=== PATIENT | male | born 1945 | race Caucasian/White ===

== ENCOUNTER 2020-02-05 16:04 | Emergency (ER) | payer OTHER ==
--- NOTE | 2020-02-05 18:03 | RAD REPORT ---
EXAM DESCRIPTION: US - Extremity Nonvascular Limited - 02/05/2020 5:40 pm CLINICAL HISTORY: Right perineum swelling COMPARISON: None FINDINGS: Palpable area is present within the right perineum. Ultrasound demonstrates a 2.3 centimeter heterogeneous mass containing hypo echoic and isoechoic area s. Increased blood flow is noted. IMPRESSION: 2.3 centimeter palpable mass within the right perineum may represent an early abscess/in flammatory mass. This should be correlated clinically
[2020-02-05] MEDS ORDERED: BUPIVACAINE 0.5% PF 10 ML VIAL ONE (18:42)
[2020-02-05] MEDS ORDERED: LIDOCAINE 1% W/EPI 1:100,000 MDV 20 ML VIAL ONE (18:42)
--- NOTE | 2020-02-05 18:51 | EDPHYS ---
Physician Documentation [facility] Name: Henry Rodriguez Age: 74 yrs Sex: Male : 1945 Arrival Date: 02/05/2020 Time: 16:07 Bed 14 Private MD: ED Physician Triston Tabor HPI: 02/04 16:43 This 74 yrs old Male presents to ER via Ambulatory with complaints of Pain cp and Swelling to Perineum. 16:43 The patient presents with swelling, that is mild, of the perineum, tenderness, that is cp mild, of the perineum. 16:44 Onset: The symptoms/episode began/occurred 4 day(s) ago. Associated signs and symptoms: cp Pertinent negatives: abdominal pain, fever. Historical: - Allergies: 16:27 No Known Allergies; ks7 - Home Meds: 16:27 pravastatin 20 mg oral tab 1 tab once daily [Active]; aspirin 81 mg Oral TbEC 1 tab ks7 once daily [Active]; - PMHx: 16:27 High Cholesterol; ks7 - PSHx: 16:27 None; ks7 - Immunization history:: Adult Immunizations up to date. - Social history:: Smoking status: Patient denies any tobacco usage or history of. ROS: 16:45 Constitutional: Negative for fever. cp 16:45 Abdomen/GI: Negative for abdominal pain. 16:45 : Positive for of the perineum, pain, tenderness and swelling. 16:45 All other systems are negative. Exam: 16:50 Constitutional: The patient appears in no acute distress, alert, awake, non-toxic, well cp developed, well nourished. 16:50 Head/Face: Normocephalic, atraumatic. cp 16:50 Chest/axilla: Inspection: normal. 16:50 Cardiovascular: Rate: normal. 16:50 Respiratory: the patient does not display signs of respiratory distress, Respirations: normal. 16:50 Abdomen/GI: Inspection: abdomen appears normal, Palpation: abdomen is soft and non-tender, in all quadrants. 16:50 : Male external genitalia: swelling, of the right perineum is noted, that is mild, tenderness, of the right perineum is noted, that is mild, no signs of obvious abscess, mild erythema noted. Vital Signs: 16:20 BP 109 / 81; Pulse 81; Resp 18; Temp 98.5(O); Pulse Ox 100% on R/A; Weight 121.11 kg ks7 (R); Height 6 ft. 7 in. (200.66 cm); Pain 0/10; 19:12 BP 99 / 76; Pulse 81; Resp 15 S; Pulse Ox 100% on R/A; ca1 16:20 Body Mass Index 30.08 (121.11 kg, 200.66 cm) ks7 MDM: 16:36 Patient medically screened. cp 17:00 Differential diagnosis: abscess, cellulitis. cp 18:50 Data reviewed: vital signs, nurses notes, radiologic studies, ultrasound. cp 18:50 Counseling: I had a detailed discussion with the patient and/or guardian regarding: the cp historical points, exam findings, and any diagnostic results supporting the discharge/admit diagnosis, radiology results, the need for outpatient follow up, a general surgeon, to return to the emergency department if symptoms worsen or persist or if there are any questions or concerns that arise at home. ED course: Attempt to aspirate area with 18 gauge needle unsuccessful. Will treat with oral antibiotics and discharge to home for continued monitoring. 02/04 16:41 Order name: Extrmtbeckie Nonvasular Limited: perineum area for abscess; Complete Time: cp 18:14 02/04 18:16 Order name: I\T\D Setup; Complete Time: 18:34 cp 02/04 18:49 Order name: Wound dressing; Complete Time: 19:10 cp Administered Medications: 18:33 Drug: Marcaine (0.5 %) 10 ml {Note: given via RADHA Lala for I\T\D .} Volume: 10 ml; jr10 Route: Infiltration; 18:34 Drug: Lidocaine-Epinephrine -1%: (1:100,000) 10 ml {Note: given via RADHA Lala for jr10 I\T\D.} Volume: 20 ml; Route: Infiltration; 19:06 Drug: Doxycycline 100 mg Route: PO; ca1 19:17 Follow up: Response: Medication administered at discharge. ca1 19:09 Drug: Bactrim (160 mg-800 mg (DS) 1 tablet Route: PO; ca1 19:17 Follow up: Response: Medication administered at discharge. ca1 Disposition: 19:00 Chart complete. cp 02/05 07:27 Co-signature as Attending Physician, Triston Tabor MD I agree with the assessment and kdr plan of care. Disposition: 02/05/20 18:51 Discharged to Home. Impression: Cellulitis and acute lymphangitis of other sites - perineum. - Condition is Stable. - Discharge Instructions: Cellulitis, Adult. - Prescriptions for Doxycycline Hyclate 100 mg Oral Tablet - take 1 tablet by ORAL route every 12 hours; 20 tablet. Bactrim DS 800- 160 mg Oral Tablet - take 1 tablet by ORAL route every 12 hours for 10 days; 20 tablet. - Medication Reconciliation Form, Thank You Letter, Antibiotic Education, Prescription Opioid Use form. - Follow up: Cole Lopez MD; When: 1 - 2 days; Reason: Recheck today's complaints. - Problem is new. - Symptoms have improved. Signatures: Dispatcher [employer] EDMS Triston Tabor MD MD kdr Dickson Jade PA PA cp Marietta Lloyd, RN RN ca1 Flaquita Bhandari RN RN ks7 Mago Kessler RN RN jr10 Corrections: (The following items were deleted from the chart) 02/04 19:18 18:51 02/05/2020 18:51 Discharged to Home. Impression: Cellulitis and acute ca1 lymphangitis of other sites - perineum. Condition is Stable. Forms are Medication Reconciliation Form, Thank You Letter, Antibiotic Education, Prescription Opioid Use. Follow up: Cole Lopez; When: 1 - 2 days; Reason: Recheck today's complaints. Problem is new. Symptoms have improved. cp
--- NOTE | 2020-02-05 18:51 | ER ---
Nurse's Notes [facility] Name: Henry Rodriguez Age: 74 yrs Sex: Male : 1945 Arrival Date: 02/05/2020 Time: 16:07 Bed 14 Private MD: Diagnosis: Cellulitis and acute lymphangitis of other sites-perineum Presentation: 02/04 16:20 Chief complaint: Patient states: pt c/o cyst/abcess on his perineum. Sx started 4 days ks7 ago. Pt describes it as a knot in between his scrotum and anus. Yesterday pt attempted to drain the abcess himself, used a "steriilzed needle" to poke the area and some white/creamy looking and then clear liquid came out. In ED pt aaox4, ambulatory, no s/s of distress, denies fever. Coronavirus screen: Client denies travel out of the [place] in the last 14 days. At this time, the client does not indicate any symptoms associated with coronavirus-19. The client denies any previous COVID testing. Ebola Screen: Patient negative for fever greater than or equal to 101.5 degrees Fahrenheit, and additional compatible Ebola Virus Disease symptoms Patient denies exposure to infectious person. Patient denies travel to an Ebola-affected area in the 21 days before illness onset. Initial Sepsis Screen: Does the patient meet any 2 criteria? No. Patient's initial sepsis screen is negative. Does the patient have a suspected source of infection? No. Patient's initial sepsis screen is negative. Risk Assessment: Do you want to hurt yourself or someone else? Patient reports no desire to harm self or others. Onset of symptoms was February 02, 2020. 16:20 Method Of Arrival: Ambulatory ks7 16:20 Acuity: ESPERANZA 3 ks7 Triage Assessment: 16:27 General: Appears in no apparent distress. Behavior is calm, cooperative. Pain: Denies ks7 pain. 16:27 Pain: Complains of pain in perineum Pain currently is 4 out of 10 on a pain scale. ks7 Quality of pain is described as dull, tender, Pain began 2-3 days ago. Aggravated by palpation, movement. Historical: - Allergies: 16:27 No Known Allergies; ks7 - Home Meds: 16:27 pravastatin 20 mg oral tab 1 tab once daily [Active]; aspirin 81 mg Oral TbEC 1 tab ks7 once daily [Active]; - PMHx: 16:27 High Cholesterol; ks7 - PSHx: 16:27 None; ks7 - Immunization history:: Adult Immunizations up to date. - Social history:: Smoking status: Patient denies any tobacco usage or history of. Screenin:05 Abuse screen: Denies threats or abuse. Denies injuries from another. Nutritional ca1 screening: No deficits noted. 19:05 Tuberculosis screening: No symptoms or risk factors identified. Fall Risk None ca1 identified. Assessment: 17:25 Reassessment: US at bedside. jr10 18:33 Reassessment: Provider at bedside for I\\T\\D. jr10 19:11 Reassessment: Patient appears in no apparent distress at this time. Patient is alert, ca1 oriented x 3, equal unlabored respirations, skin warm/dry/pink. Vital Signs: 16:20 BP 109 / 81; Pulse 81; Resp 18; Temp 98.5(O); Pulse Ox 100% on R/A; Weight 121.11 kg ks7 (R); Height 6 ft. 7 in. (200.66 cm); Pain 0/10; 19:12 BP 99 / 76; Pulse 81; Resp 15 S; Pulse Ox 100% on R/A; ca1 16:20 Body Mass Index 30.08 (121.11 kg, 200.66 cm) ks7 ED Course: 16:07 Patient arrived in ED. ag5 16:25 Triage completed. ks7 16:27 Arm band placed on left wrist. ks7 16:31 Dickson Jade PA is PHCP. cp 16:31 Triston Tabor MD is Attending Physician. cp 16:39 Mago Kessler, SHAKIRA is Primary Nurse. jr10 17:40 US Extrmty Nonvasular Limited: perineum area for abscess In Process Unspecified. EDMS 18:50 Cole Lopez MD is Referral Physician. cp 19:00 Patient has correct armband on for positive identification. Placed in gown. Bed in low ca1 position. Call light in reach. Side rails up X 1. 19:00 Pulse ox on. NIBP on. ca1 19:11 No provider procedures requiring assistance completed. Patient did not have IV access ca1 during this emergency room visit. Administered Medications: 18:33 Drug: Marcaine (0.5 %) 10 ml {Note: given via RADHA Lala for I\\T\\D .} Volume: 10 ml; jr10 Route: Infiltration; 18:34 Drug: Lidocaine-Epinephrine -1%: (1:100,000) 10 ml {Note: given via RADHA Lala for jr10 I\\T\\D.} Volume: 20 ml; Route: Infiltration; 19:06 Drug: Doxycycline 100 mg Route: PO; ca1 19:17 Follow up: Response: Medication administered at discharge. ca1 19:09 Drug: Bactrim (160 mg-800 mg (DS) 1 tablet Route: PO; ca1 19:17 Follow up: Response: Medication administered at discharge. ca1 Outcome: 18:51 Discharge ordered by MD. [place] 19:17 Discharged to home ambulatory. ca1 19:17 Condition: stable 19:17 Discharge instructions given to patient, Instructed on discharge instructions, follow up and referral plans. medication usage, wound care, Demonstrated understanding of instructions, follow-up care, medications, wound care, Prescriptions given X 2. 19:18 Patient left the ED. ca1 Signatures: Dispatcher [employer] EDMS Dickson Jade PA PA cp Acob, Cheryl RN RN ca1 Jeevan Lilly ag5 Flaquita Bhandari, RN RN ks7 Mago Kessler RN RN jr10
[2020-02-05] MEDS ORDERED: DOXYCYCLINE 100 MG CAP PO ONE (19:17)
[2020-02-05] MEDS ORDERED: SMZ./TMP. 800/160 MG TABLET ONE (19:17)
[2020-02-05 19:22] VITALS: TEMP 98.5; O2SAT 100
[2020-02-05 19:23] VITALS: BP 99/76
== END 2020-02-05 19:18 | disposition home or self-care (01) ==
LOC: ER 16:04
DX: L03.315 Cellulitis of perineum (principal); L00-L99 Diseases of the skin and subcutaneous tissue; E78.00 Pure hypercholesterolemia, unspecified; Z79.82 Long term (current) use of aspirin
CPT/HCPCS: 76882; 99284

== ENCOUNTER 2021-07-29 12:18 | Observation (INO) | payer OTHER ==
[2021-07-29 12:56] LABS: Absolute Lymphocytes (CBC) 1.6 K/uL (0.7-4.9); Hematocrit 50.5 % (39.6-49.0); Lymphocytes % 26.6 % (15.3-44.8); MPV 9.6 fL (7.6-11.3); RBC Red Blood Cell Count 5.33 M/uL (4.33-5.43)
[2021-07-29 12:57] LABS: Protime INR 0.93
--- NOTE | 2021-07-29 12:57 | RAD REPORT ---
EXAM DESCRIPTION: RAD - Chest Single View - 07/29/2021 12:51 pm CLINICAL HISTORY: CHEST PAIN Chest pain. COMPARISON: No comparisons FINDINGS: Portable technique limits examination quality. The lungs are emphysematous but grossly clear. The heart is normal in size. No displaced fractures. IMPRESSION: No acute intrathoracic process suspected.
[2021-07-29 16:28] LABS: ALT/SGPT 30 U/L (12-78); AST/SGOT 22 U/L (15-37); Albumin 3.6 g/dL (3.4-5.0); Alkaline Phosphatase 76 U/L (45-117); BUN Blood Urea Nitrogen 16 mg/dL (7-18); Bicarbonate 24 mmol/L (21-32); Bilirubin Direct 0.1 mg/dL (0-0.2); Bilirubin Total 0.5 mg/dL (0.2-1.0); Glucose Level 121 mg/dL (74-106); NT PRO-BNP 76 pg/mL (<125); Potassium 4.1 mmol/L (3.5-5.1); Protein, Total 7.9 g/dL (6.4-8.2); Sodium Level 139 mmol/L (136-145)
--- NOTE | 2021-07-29 18:58 | EDPHYS ---
Physician Documentation [facility] Name: Henry Rodriguez Age: 75 yrs Sex: Male : 1945 Arrival Date: 07/29/2021 Time: 12:20 Bed 19 Private MD: ED Physician Triston Tabor HPI: 07/29 18:57 This 75 yrs old Male presents to ER via Ambulatory with complaints of Chest Tightness, kdr Palpitations. 18:57 The patient or guardian reports chest pain that is located primarily in the anterior kdr chest wall, chest diffusely. Onset: suddenly, just prior to arrival. The pain does not radiate. Associated signs and symptoms: Pertinent positives: Weakness. Duration: The patient or guardian reports a single episode. Severity of pain: At its worst the pain was mild in the emergency department the pain has resolved. The patient has not experienced similar symptoms in the past. The patient has not recently seen a physician. The patient has a very strong family history of spontaneous cardiac events including . He is the oldest of 5 boys. The younger 2 boys have already due to spontaneous acute cardiac events. The middle brother has a extremely diminished EF secondary to prior heart attacks and the brother just under him has also had several cardiac events similar to what the patient has currently experienced. Historical: - Allergies: 12:39 No Known Allergies; [facility] - Home Meds: 12:28 aspirin 81 mg Oral TbEC 1 tab once daily [Active]; pravastatin 40 mg oral tab [Active]; [facility] - PMHx: 12:28 High Cholesterol; [facility] - Immunization history:: Adult Immunizations up to date. - Social history:: Smoking status: Patient denies any tobacco usage or history of. ROS: 19:04 Constitutional: Negative for fever, chills, and weight loss, Eyes: Negative for injury, kdr pain, redness, and discharge, ENT: Negative for injury, pain, and discharge, Neck: Negative for injury, pain, and swelling, Respiratory: Negative for shortness of breath, cough, wheezing, and pleuritic chest pain, Abdomen/GI: Negative for abdominal pain, nausea, vomiting, diarrhea, and constipation, Back: Negative for injury and pain, : Negative for injury, bleeding, discharge, and swelling, MS/Extremity: Negative for injury and deformity, Skin: Negative for injury, rash, and discoloration, Neuro: Negative for headache, weakness, numbness, tingling, and seizure activity. Psych: Negative for depression, anxiety, suicide ideation, homicidal ideation, and hallucinations, Allergy/Immunology: Negative for hives, rash, and allergies, Endocrine: Negative for neck swelling, polydipsia, polyuria, polyphagia, and marked weight changes, Hematologic/Lymphatic: Negative for swollen nodes, abnormal bleeding, and unusual bruising. 19:04 Cardiovascular: Positive for palpitations, Negative for edema. 19:04 Respiratory: Positive for shortness of breath. Exam: 17:43 ECG was reviewed by the Attending Physician. kdr 19:04 Constitutional: This is a well developed, well nourished patient who is awake, alert, kdr and in no acute distress. Head/Face: Normocephalic, atraumatic. Eyes: Pupils equal round and reactive to light, extra-ocular motions intact. Lids and lashes normal. Conjunctiva and sclera are non-icteric and not injected. Cornea within normal limits. Periorbital areas with no swelling, redness, or edema. Neck: Trachea midline, no thyromegaly or masses palpated, and no cervical lymphadenopathy. Supple, full range of motion without nuchal rigidity, or vertebral point tenderness. No Meningismus. Chest/axilla: Normal chest wall appearance and motion. Nontender with no deformity. No lesions are appreciated. Cardiovascular: Regular rate and rhythm with a normal S1 and S2. No gallops, murmurs, or rubs. Normal PMI, no JVD. No pulse deficits. Respiratory: Lungs have equal breath sounds bilaterally, clear to auscultation and percussion. No rales, rhonchi or wheezes noted. No increased work of breathing, no retractions or nasal flaring. Abdomen/GI: Soft, non-tender, with normal bowel sounds. No distension or tympany. No guarding or rebound. No evidence of tenderness throughout. Back: No spinal tenderness. No costovertebral tenderness. Full range of motion. Skin: Warm, dry with normal turgor. Normal color with no rashes, no lesions, and no evidence of cellulitis. MS/ Extremity: Pulses equal, no cyanosis. Neurovascular intact. Full, normal range of motion. Neuro: Awake and alert, GCS 15, oriented to person, place, time, and situation. Cranial nerves II-XII grossly intact. Motor strength 5/5 in all extremities. Sensory grossly intact. Cerebellar exam normal. Normal gait. Psych: Awake, alert, with orientation to person, place and time. Behavior, mood, and affect are within normal limits. Vital Signs: 12:26 BP 146 / 76; Pulse 85; Resp 18; Temp 97; Pulse Ox 100% ; Weight 120.2 kg; Height 6 ft. [facility] 7 in. (200.66 cm); Pain 0/10; 13:00 BP 120 / 76; Pulse 73; Resp 17; Pulse Ox 98% ; Pain 0/10; eo2 14:00 BP 103 / 70; Pulse 59; Resp 15; Pulse Ox 98% ; Pain 0/10; eo2 15:00 BP 118 / 73; Pulse 58; Resp 15; Pulse Ox 99% ; Pain 0/10; eo2 16:00 BP 119 / 75; Pulse 56; Resp 15; Pulse Ox 99% ; Pain 0/10; eo2 17:00 BP 125 / 75; Pulse 57; Resp 15; Pulse Ox 99% ; Pain 0/10; eo2 18:00 BP 119 / 84; Pulse 50; Resp 14; Pulse Ox 100% ; Pain 0/10; eo2 19:00 BP 94 / 68; Pulse 56; Resp 16; Pulse Ox 100% ; Pain 0/10; al4 20:00 BP 136 / 84; Pulse 50 MON; Resp 14 S; Pulse Ox 100% on R/A; Pain 0/10; al4 21:00 BP 115 / 59; Pulse 52; Resp 12; Pulse Ox 100% ; Pain 0/10; al4 12:26 Body Mass Index 29.85 (120.20 kg, 200.66 cm) [facility] MDM: 18:57 Patient medically screened. kdr 19:05 Data reviewed: vital signs, nurses notes, lab test result(s), radiologic studies. kdr Counseling: I had a detailed discussion with the patient and/or guardian regarding: the historical points, exam findings, and any diagnostic results supporting the discharge/admit diagnosis, lab results, radiology results, the need for further work-up and treatment in the hospital. 07/29 12:25 Order name: Basic Metabolic Panel; Complete Time: 17:12 kdr 07/29 12:25 Order name: CBC with Diff; Complete Time: 16:07 [facility] 07/29 12:25 Order name: LFT's; Complete Time: 17:12 kdr 07/29 12:25 Order name: Magnesium kdr 07/29 12:25 Order name: NT PRO-BNP; Complete Time: 17:12 kdr 07/29 12:25 Order name: PT-INR; Complete Time: 16:07 kdr 07/29 12:25 Order name: Troponin HS; Complete Time: 17:12 [facility] 07/29 12:25 Order name: XRAY Chest (1 view); Complete Time: 16:07 kdr 07/29 12:25 Order name: EKG; Complete Time: 12:26 kdr 07/29 12:25 Order name: Cardiac monitoring; Complete Time: 12:50 kdr 07/29 17:13 Order name: Troponin HS [facility] 07/29 17:14 Order name: Troponin High Sensitivity; Complete Time: 18:51 EDMS 07/29 18:51 Order name: COVID-19 SARS RT PCR (Document "Date of Onset" if Symptomatic) kj1 07/29 18:54 Order name: COVID-19/FLU A+B (Document "Date of Onset" if Symptomatic) 5 07/29 12:25 Order name: EKG - Nurse/Tech; Complete Time: 12:50 [facility] 07/29 12:25 Order name: IV Saline Lock; Complete Time: 12:50 [facility] 07/29 12:25 Order name: Labs collected and sent; Complete Time: 12:50 [facility] 07/29 12:25 Order name: O2 Per Protocol; Complete Time: 12:59 [facility] 07/29 12:25 Order name: O2 Sat Monitoring; Complete Time: 12:59 kdr EC:43 Rate is 74 beats/min. Rhythm is irregular, Sinus arrythmia with No ectopy. QRS [place] is kdr Normal. MI interval is normal. QRS interval is normal. QT interval is normal. Clinical impression: NSR w/ Non-specific ST/T Changes and Sinus arrythmia. Administered Medications: No medications were administered Disposition Summary: 07/29/21 18:57 Hospitalization Ordered Hospitalization Status: Observation kdr Provider: Prince frankie Jones Location: Telemetry/MedSurg (observation) kdr Condition: Fair kdr Problem: new kdr Symptoms: have improved kdr Bed/Room Type: Standard [facility] Room Assignment: [facility](07/29/21 21:15) cg Diagnosis - Palpitations kdr - Chest pain, unspecified kdr Forms: - Medication Reconciliation Form kdr - SBAR form kdr Signatures: Dispatcher [employer] Triston Germain MD MD kdr Alcon Michaels, SALES SUPPORT CONSULTANT-C SALES SUPPORT CONSULTANT-Cherrie1 Radha Norman RN RN cg Mago House RN RN jh5 Corrections: (The following items were deleted from the chart) 21:15 18:57 kdr cg
--- NOTE | 2021-07-29 18:58 | ER ---
Nurse's Notes [facility] Name: Henry Rodriguez Age: 75 yrs Sex: Male : 1945 Arrival Date: 07/29/2021 Time: 12:20 Bed 19 Private MD: Diagnosis: Palpitations;Chest pain, unspecified Presentation: 07/29 12:26 Chief complaint: Patient states: approx hour and half ago pt states he had odd feeling jh5 in his chest where his heart felt like it was beating hard and wanted to get checked out. He feels a lot better now; but has had several episodes where his heart was not beating steadily. Coronavirus screen: Vaccine status: Patient reports receiving the 2nd dose of the covid vaccine. Client denies travel out of the [place] in the last 14 days. Ebola Screen: Patient negative for fever greater than or equal to 101.5 degrees Fahrenheit, and additional compatible Ebola Virus Disease symptoms Patient denies exposure to infectious person. Patient denies travel to an Ebola-affected area in the 21 days before illness onset. Initial Sepsis Screen: Does the patient meet any 2 criteria? Yes Does the patient have a suspected source of infection? No. Patient's initial sepsis screen is negative. Risk Assessment: Do you want to hurt yourself or someone else? Patient reports no desire to harm self or others. Onset of symptoms was July 29, 2021. 12:26 Method Of Arrival: Ambulatory [facility] 12:26 Acuity: ESPERANZA 3 5 Triage Assessment: 12:28 General: Appears in no apparent distress. slender, well groomed, well developed, well [facility] nourished, Behavior is calm, cooperative, appropriate for age. Pain: Denies pain. Cardiovascular: Reports palpitations. Historical: - Allergies: 12:39 No Known Allergies; [facility] - Home Meds: 12:28 aspirin 81 mg Oral TbEC 1 tab once daily [Active]; pravastatin 40 mg oral tab [Active]; [facility] - PMHx: 12:28 High Cholesterol; [facility] - Immunization history:: Adult Immunizations up to date. - Social history:: Smoking status: Patient denies any tobacco usage or history of. Screenin:59 Abuse screen: Denies threats or abuse. Denies injuries from another. Nutritional eo2 screening: No deficits noted. Tuberculosis screening: No symptoms or risk factors identified. Fall Risk None identified. Assessment: 12:59 General: Appears in no apparent distress. comfortable, Behavior is calm, cooperative. eo2 Pain: Pain does not radiate. Pain began suddenly. Neuro: No deficits noted. Level of Consciousness is awake, alert, obeys commands, Oriented to person, place, time, situation, Denies dizziness, headache. Cardiovascular: Reports chest tightness onset this AM, states, "I never had chest pain" Heart tones S1 S2 Capillary refill < 3 seconds Rhythm is sinus rhythm. Respiratory: Airway is patent Respiratory effort is even, unlabored, Respiratory pattern is regular, symmetrical, Breath sounds are clear bilaterally. GI: No deficits noted. No signs and/or symptoms were reported involving the gastrointestinal system. Musculoskeletal: No deficits noted. No signs and/or symptoms reported regarding the musculoskeletal system. 19:22 Reassessment: Hospitalist Alcon HUIZAR at bedside assessing patient. al4 19:30 General: Appears in no apparent distress. comfortable, Behavior is calm, cooperative. al4 Pain: Denies pain. Neuro: Level of Consciousness is awake, alert, obeys commands, Oriented to person, place, time, situation. Cardiovascular: Heart tones S1 S2 Capillary refill < 3 seconds Patient's skin is warm and dry. Rhythm is sinus rhythm. Respiratory: Airway is patent Respiratory effort is even, unlabored, Respiratory pattern is regular, symmetrical. Respiratory: Breath sounds are clear bilaterally. GI: No signs and/or symptoms were reported involving the gastrointestinal system. : No signs and/or symptoms were reported regarding the genitourinary system. EENT: No signs and/or symptoms were reported regarding the EENT system. Derm: No signs and/or symptoms reported regarding the dermatologic system. Musculoskeletal: Range of motion: intact in all extremities. 20:06 Reassessment: GAYE Rondon gave permission for patient to eat until midnight. al4 20:30 Reassessment: Patient finished meal and is resting comfortably. Patient is awake and al4 alert. Denies pain. 21:00 Reassessment: Patient and/or family updated on plan of care and expected duration. Pain al4 level reassessed. Patient denies pain at this time. 21:30 Reassessment: Patient is alert and oriented. Resting comfortably in bed. al4 Vital Signs: 12:26 BP 146 / 76; Pulse 85; Resp 18; Temp 97; Pulse Ox 100% ; Weight 120.2 kg; Height 6 ft. jh5 7 in. (200.66 cm); Pain 0/10; 13:00 BP 120 / 76; Pulse 73; Resp 17; Pulse Ox 98% ; Pain 0/10; eo2 14:00 BP 103 / 70; Pulse 59; Resp 15; Pulse Ox 98% ; Pain 0/10; eo2 15:00 BP 118 / 73; Pulse 58; Resp 15; Pulse Ox 99% ; Pain 0/10; eo2 16:00 BP 119 / 75; Pulse 56; Resp 15; Pulse Ox 99% ; Pain 0/10; eo2 17:00 BP 125 / 75; Pulse 57; Resp 15; Pulse Ox 99% ; Pain 0/10; eo2 18:00 BP 119 / 84; Pulse 50; Resp 14; Pulse Ox 100% ; Pain 0/10; eo2 19:00 BP 94 / 68; Pulse 56; Resp 16; Pulse Ox 100% ; Pain 0/10; al4 20:00 BP 136 / 84; Pulse 50 MON; Resp 14 S; Pulse Ox 100% on R/A; Pain 0/10; al4 21:00 BP 115 / 59; Pulse 52; Resp 12; Pulse Ox 100% ; Pain 0/10; al4 12:26 Body Mass Index 29.85 (120.20 kg, 200.66 cm) [facility] ED Course: 12:20 Patient arrived in ED. rg4 12:25 Triston Tabor MD is Attending Physician. kdr 12:28 Triage completed. [facility] 12:28 Arm band placed on left wrist. [facility] 12:51 XRAY Chest (1 view) In Process Unspecified. EDME 12:51 Inserted saline lock: 20 gauge in right forearm, using aseptic technique. Blood ic1 collected. 12:59 Sophie Mcdowell, SHAKIRA is Primary Nurse. eo2 12:59 Patient has correct armband on for positive identification. traffic monitor specialist on. Pulse eo2 ox on. NIBP on. 12:59 No provider procedures requiring assistance completed. Patient maintains SpO2 eo2 saturation greater than 95% on room air. 17:34 Troponin HS Sent. eo2 17:34 Troponin High Sensitivity Sent. eo2 18:55 Prince Jones MD is Hospitalizing Provider. kdr 19:08 Report given to Ariel ROSEBNERG. eo2 19:32 COVID-19/FLU A+B (Document "Date of Onset" if Symptomatic) Sent. oe 22:01 Patient admitted, IV remains in place. No redness/swelling at site. ll3 Administered Medications: No medications were administered Outcome: 18:57 Decision to Hospitalize by Provider. kdr 22:01 Admitted to Med/surg accompanied by tech, via wheelchair, room 212, with chart, Report ll3 called to Receiving RN 22:01 Condition: stable 22:01 Discharge instructions given to patient, Instructed on the need for admit, Demonstrated understanding of instructions. 22:02 Patient left the ED. ll3 Signatures: Dispatcher [employer] EDMS Triston Tabor MD MD kdr Garcia, Rubi rg4 Flavio Coombs Jessica, RN RN jh5 Albin Hatfield RN RN ll3 Ariel Sanchez Eunice RN RN eo2 Bev Ross RN RN ic1
--- NOTE | 2021-07-29 19:37 | P.HP ---
Certification for Inpatient Patient admitted to: Observation With expected LOS: <2 Midnights Patient will require the following post-hospital care: None Practitioner: I am a practitioner with admitting privileges, knowledge of patient current condition, hospital course, and medical plan of care. Services: Services provided to patient in accordance with Admission requirements found in Title 42 Section 412.3 of the Code of Federal Regulations Patient History Date of Service: 07/29/21 Reason for admission: Chest pain History of Present Illness: 75-year-old male with history of hyperlipidemia presents the emergency department for chest discomfort, palpitations. Patient reports multiple episodes of uneasy feeling in his chest as well as palpitations. Patient was evaluated in the emergency department labs were significant for creatinine 1.64 GFR 41 glucose 121 high-sensitivity troponin initially 14.3 increased to 30.2 on next draw. Patient currently pain-free but has very strong family history of sudden cardiac and coronary artery disease. ED provider wishes to admit under observation for further evaluation and management/ACS rule out. - Past Medical/Surgical History -: Hyperlipidemia -: Appendectomy Psychosocial/ Personal History: Patient lives at home, cares for his disabled - Family History Brother -: Heart disease Notes: Multiple brothers with heart disease, sudden cardiac - Social History Smoking Status: Never smoker Alcohol use: No CD- Drugs: No Caffeine use: Yes Place of Residence: Home Review of Systems 10-point ROS is otherwise unremarkable Cardiovascular: Chest Pain, Palpitations, As per HPI Physical Examination - Physical Exam General: Alert, In no apparent distress, Oriented x3 HEENT: Atraumatic, PERRLA, Mucous membr. moist/pink, EOMI, Sclerae nonicteric Neck: Supple, 2+ carotid pulse no bruit, No LAD, Without JVD or thyroid abnormality Respiratory: Clear to auscultation bilaterally, Normal air movement Cardiovascular: Regular rate/rhythm, Normal S1 S2 Gastrointestinal: Normal bowel sounds, No tenderness Musculoskeletal: No tenderness Integumentary: No rashes Neurological: Normal gait, Normal speech, Normal strength at 5/5 x4 extr, Normal tone, Normal affect Lymphatics: No axilla or inguinal lymphadenopathy - Studies Laboratory Data (last 24 hrs) 07/29/21 12:41: PT 10.7, INR 0.93 07/29/21 12:41: WBC 6.10, Hgb 17.0, Hct 50.5 H, Plt Count 153 07/29/21 12:41: Sodium 139, Potassium 4.1, BUN 16, Creatinine 1.64 H, Glucose 121 H, Magnesium OFFICE SECRETARY, Total Bilirubin 0.5, AST 22, ALT 30, Alkaline Phosphatase 76 Assessment and Plan - Plan Assessment: Chest pain rule out ACS Renal insufficiency Hyperlipidemia Plan: Chest pain rule out ACS: Trend troponin, monitor on telemetry, continue aspirin, statin that patient takes at home. Cardiology consult in place. Patient with significant past family history. Appreciate further input from cardiology Renal insufficiency: No labs available for review, patient does not report any chronic kidney disease. We will continue with IV fluids overnight recheck with morning labs. Hyperlipidemia: We will obtain lipid panel in the morning, continue patient statin therapy. DVT PPX: Lovenox Code status: Full Discharge Plan: Home Plan to discharge in: 24 Hours - Advance Directives Does patient have a Living Will: No Does patient have a Durable POA for Healthcare: No - Code Status/Comfort Care Code Status Assessed: Yes (Full code) Critical Care: No Time Spent Managing Pts Care (In Minutes): 55
[2021-07-29] MEDS: ATORVASTATIN 10 MG TAB PO SCH ×2 (22:17→23:37)
[2021-07-29] MEDS ORDERED: ONDANSETRON 4 MG/2 ML VIAL IV PRN (22:17)
[2021-07-29 23:12] VITALS: O2SAT 100; BMI 29.8
[2021-07-29] MEDS: NA CHLORIDE 0.9% 1,000 ML IV SCH (23:37)
[2021-07-30 00:55] LABS: SARS-COV-2 RT PCR NEGATIVE (NEGATIVE)
[2021-07-30 01:10] LABS: Urine Appearance CLEAR (Clear); Urine Bilirubin NEGATIVE (Negative); Urine Blood NEGATIVE (Negative); Urine Color YELLOW (Yellow); Urine Glucose NEGATIVE (Negative); Urine Protein NEGATIVE (Negative); Urine Specific Gravity 1.015 (1.005-1.030); Urine pH 7.5 (5.0-7.0)
[2021-07-30 01:18] LABS: Urine Microscopic Reflex NO UMIC
[2021-07-30 05:45] LABS: Absolute Lymphocytes (CBC) 1.3 K/uL (0.7-4.9); Hematocrit 44.7 % (39.6-49.0); Lymphocytes % 19.8 % (15.3-44.8); MPV 9.5 fL (7.6-11.3); RBC Red Blood Cell Count 4.73 M/uL (4.33-5.43)
[2021-07-30 06:10] LABS: Bilirubin Total 0.7 mg/dL (0.2-1.0); Potassium 4.5 mmol/L (3.5-5.1); Protein, Total 6.8 g/dL (6.4-8.2); Troponin High Sensitivity 16.6 pg/mL (<58.9)
[2021-07-30] MEDS: NA CHLORIDE 0.9% 1,000 ML IV SCH (08:31)
[2021-07-30] MEDS ORDERED: ENOXAPARIN 40 MG/0.4 ML SQ SCH (09:00)
[2021-07-30] MEDS ORDERED: ASPIRIN EC 81 MG TAB PO SCH (09:00)
--- NOTE | 2021-07-30 12:07 | P.DS ---
Admission Date: 07/29/21 Discharge Date: 07/30/21 Disposition: ROUTINE DISCHARGE Discharge Condition: GOOD Reason for Admission: Chest pain Hospital Course: 75-year-old male with a past medical history of hyperlipidemia who was admitted for ACS work-up after she presented with chest discomfort and palpitations. ACS was ruled out. He was seen by cardiology during the stay and they recommended outpatient stress test. He had mild creatinine elevation which improved on hospital day #1. Vital Signs/Physical Exam: Temp Pulse Resp BP Pulse Ox 98.2 F 57 15 114/58 L 99 07/30/21 08:00 07/30/21 08:00 07/30/21 08:00 07/30/21 08:00 07/30/21 08:00 General: Alert, In no apparent distress HEENT: Atraumatic, Normocephalic Respiratory: Clear to auscultation bilaterally, Normal air movement Cardiovascular: No edema, Normal pulses, Regular rate/rhythm, Normal S1 S2 Gastrointestinal: Soft and benign, Non-distended Musculoskeletal: No clubbing, No swelling, No contractures Neurological: Normal speech, Normal affect Laboratory Data at Discharge: WBC 6.70 K/uL (4.3-10.9) 07/30/21 05:10 Hgb 15.0 g/dL (13.6-17.9) 07/30/21 05:10 Hct 44.7 % (39.6-49.0) 07/30/21 05:10 Plt Count 158 K/uL (152-406) 07/30/21 05:10 PT 10.7 SECONDS (9.5-12.5) 07/29/21 12:41 INR 0.93 07/29/21 12:41 Sodium 139 mmol/L (136-145) 07/30/21 05:10 Potassium 4.5 mmol/L (3.5-5.1) 07/30/21 05:10 BUN 16 mg/dL (7-18) 07/30/21 05:10 Creatinine 1.52 mg/dL (0.55-1.3) H 07/30/21 05:10 Glucose 113 mg/dL (74-106) H 07/30/21 05:10 Magnesium TELE MARKETING EXECUTIVE 07/29/21 12:41 Total Bilirubin 0.7 mg/dL (0.2-1.0) 07/30/21 05:10 AST 17 U/L (15-37) 07/30/21 05:10 ALT 25 U/L (12-78) 07/30/21 05:10 Alkaline Phosphatase 64 U/L (45-117) 07/30/21 05:10 Home Medications: Aspirin [Aspirin EC 81 MG] 81 mg PO DAILY 07/29/21 Pravastatin Sodium 20 mg PO DAILY 07/29/21 Followup: Otto Guzman MD [Primary Care Provider] -
[2021-07-30 13:11] VITALS: BP 109/71; TEMP 97.2
--- NOTE | 2021-07-30 14:41 | EKG ---
Test Date: 2021-07-29 Test Time: 12:39:02 Line Patrolman: LYNETTE MEASUREMENT RESULTS: Intervals: Rate: 74 ME: 164 QRSD: 134 QT: 384 QTc: 426 [place]: P: 75 ME: 164 QRS: 47 T: 72 INTERPRETIVE STATEMENTS: Sinus rhythm with marked sinus arrhythmia Right bundle branch block Abnormal ECG No previous ECG available for comparison Electronically Signed On 07-30-21 14:40:46 STAFF TRAINING AND DEVELOPMENT MANAGER by Rony White
--- NOTE | 2021-07-31 20:55 | CON ---
Date of Consultation: 07/30/2021 Reason For Consultation: Atypical chest pain. History Of Present Illness: Mr. Rodriguez was admitted to Dr. Jones. He is 75, has a history of dysl ipidemia and takes aspirin and pravastatin. Has no allergies. Came then with anterior chest pain th at is chest wall like diffuse, does not radiate. Has been having some weak spells, but no nausea, vo miting, diaphoresis, PND, orthopnea, pedal edema, palpitations, or syncope. Has a very strong family history with heart disease in 5 of his brothers, 2 of them have had because of coronary artery disea se. Has a history of chronic right bundle-branch block and has a history of normal heart catheteriza tion few years ago. Past Medical History: As stated above. Allergies: NONE. Review of Systems: Negative. Social History: Negative. Family History: Positive for heart disease as stated above. Medications: Include aspirin, and pravastatin. Physical Examination: Vital Signs: Stable, afebrile. HEENT: Negative. Neck: Supple, no bruit. Chest: Clear to auscultation and percussion. Cardiac: Exam revealed a regular rhythm and rate. No murmurs, gallops, or rubs. Abdomen: Benign. Extremities: Revealed no clubbing, cyanosis, or edema. Diagnostic Data: EKG showed right bundle-branch block. Creatinine is 1.52. Rest of the blood work was unremarkable. COVID negative. Impression And Plan: Atypical chest pain in a patient with previous normal heart catheterization, garza s a right bundle, has an extensive family history of heart disease. Chest pain is atypical. I think , it is more likely related to a regular heartbeat rather than coronary artery disease; however, he i s such a high risk patient that I recommended that he had an MPI and an echocardiogram as an outpatie nt in the very near future. I will make an arrangements for that. He can go home otherwise. IWONA/MILLY Voice ID: [id number] Report ID: [id number]
== END 2021-07-30 15:19 | disposition home or self-care (01) ==
LOC: ER 12:18 → ERHOLD 19:46 → 2ND 21:54
PROVIDERS: ADMIT Internal Medicine; ATTEND Internal Medicine
DX: R07.89 Other chest pain (principal); E78.5 Hyperlipidemia, unspecified; R00.2 Palpitations; I45.10 Unspecified right bundle-branch block; N28.9 Disorder of kidney and ureter, unspecified; Z79.82 Long term (current) use of aspirin; Z79.899 Other long term (current) drug therapy; Z20.822 Contact with and (suspected) exposure to COVID-19; Z82.49 Family history of ischemic heart disease and other diseases of the circulatory system
CPT/HCPCS: 93005; 85025 ×2; 80048; 36415; 83735; 85610; 80076; 81003; 84484 ×4; 80053; 83880; 0240U; 71045; 99285; J1650; J7030 ×2; G0378 ×3; U0003

== ENCOUNTER 2021-09-02 14:46 | Emergency (ER) | payer OTHER ==
[2021-09-02 15:48] LABS: Urine Blood Negative (Negative); Urine Glucose Negative (Negative); Urine Protein Negative (Negative); Urine Specific Gravity >=1.030 (1.005-1.030)
--- NOTE | 2021-09-02 16:27 | RAD REPORT ---
EXAM DESCRIPTION: RAD - Pelvis - 09/02/2021 4:20 pm CLINICAL HISTORY: left hip pain COMPARISON: No comparisons FINDINGS: No acute fracture. No malalignment. No significant focal degenerative changes. IMPRESSION: No acute osseous abnormality involving the bony pelvis.
--- NOTE | 2021-09-02 16:27 | RAD REPORT ---
EXAM DESCRIPTION: RAD - Hip Left 2 View - 09/02/2021 4:20 pm CLINICAL HISTORY: PAIN COMPARISON: No comparisons FINDINGS: No acute fracture. No malalignment. Mild left acetabular degenerative changes. IMPRESSION: No acute osseous abnormality involving the left hip.
[2021-09-02 16:31] LABS: Urine Bacteria <20 /HPF (NONE SEEN); Urine RBC <5 /HPF (NONE SEEN)
--- NOTE | 2021-09-02 16:54 | EDPHYS ---
Physician Documentation [facility] Name: Henry Rodriguez Age: 76 yrs Sex: Male : 1945 Arrival Date: 09/02/2021 Time: 14:50 Bed 11 Private MD: ED Physician Connor Morton HPI: 09/02 15:45 This 76 yrs old Male presents to ER via Ambulatory with complaints of Hip Pain - Left cp sided, Groin Pain. 15:45 The patient or guardian reports pain. sustained from unknown reason, There is no cp obvious deformity, The patient is able to self ambulate. The patient is able to bear their full body weight. The complaints affect the left hip. 15:45 Onset: The symptoms/episode began/occurred 6 day(s) ago, and became worse 2 day(s) ago. cp 15:45 Modifying factors: the symptoms are aggravated by walking. Associated signs and cp symptoms: Pertinent negatives: abdominal pain, chest pain, dysuria, fever, weakness, numbness. Historical: - Allergies: 14:58 No Known Allergies; ld1 - Home Meds: 14:58 aspirin 81 mg Oral TbEC 1 tab once daily [Active]; pravastatin 20 mg oral tab [Active]; ld1 - PMHx: 14:58 High Cholesterol; ld1 - PSHx: 14:58 Appendectomy; ld1 - Immunization history:: Adult Immunizations up to date, Client reports receiving the 2nd dose of the Covid vaccine. - Social history:: Smoking status: Patient denies any tobacco usage or history of. Patient/guardian denies using alcohol. ROS: 15:50 Constitutional: Negative for body aches, chills, fever, poor PO intake. cp 15:50 Eyes: Negative for injury, pain, redness, and discharge. cp 15:50 Cardiovascular: Negative for chest pain, edema, palpitations. 15:50 Respiratory: Negative for cough, shortness of breath, wheezing. 15:50 Abdomen/GI: Negative for abdominal pain, nausea, vomiting, and diarrhea. 15:50 Back: Negative for pain at rest, pain with movement. 15:50 MS/extremity: Positive for pain, of the left hip, Negative for injury or acute deformity, decreased range of motion. 15:50 Skin: Negative for cellulitis, rash. 15:50 Neuro: Negative for altered mental status, dizziness, headache, numbness, tingling, weakness. 15:50 All other systems are negative. Exam: 15:55 Constitutional: The patient appears in no acute distress, alert, awake, comfortable, cp non-toxic, well developed, well nourished. 15:55 Head/Face: Normocephalic, atraumatic. cp 15:55 Cardiovascular: Rate: normal. 15:55 Respiratory: the patient does not display signs of respiratory distress, Respirations: normal, no use of accessory muscles, no retractions, labored breathing, is not present. 15:55 Abdomen/GI: Exam negative for discomfort, distension, guarding, Inspection: abdomen appears normal. 15:55 Back: pain, is absent, ROM is normal, vertebral tenderness, is not appreciated. 15:55 Musculoskeletal/extremity: Extremities: grossly normal except: noted in the left hip: pain, tenderness, There is no evidence of decreased ROM, deformity, ROM: limited passive range of motion due to pain, in the left hip, Perfusion: the extremity is normally perfused throughout, the left leg Sensation intact. DVT Exam: No signs of deep vein thrombosis. Vital Signs: 14:58 BP 139 / 87; Pulse 88; Resp 18; Temp 98.7(TE); Pulse Ox 96% on R/A; Weight 122.47 kg; ld1 Height 6 ft. 7 in. (200.66 cm); Pain 2/10; 17:00 BP 144 / 75; Pulse 76; Resp 18; Pulse Ox 96% on R/A; ss7 14:58 Body Mass Index 30.42 (122.47 kg, 200.66 cm) ld1 MDM: 15:12 Patient medically screened. cp 16:00 Differential diagnosis: hip fracture, bursitis, arthritis, strain. cp 16:53 Data reviewed: vital signs, nurses notes, radiologic studies, plain films. cp 16:53 Test interpretation: by ED physician or midlevel provider: plain radiologic studies. cp Counseling: I had a detailed discussion with the patient and/or guardian regarding: the historical points, exam findings, and any diagnostic results supporting the discharge/admit diagnosis, radiology results, the need for outpatient follow up, a orthopedic surgeon, to return to the emergency department if symptoms worsen or persist or if there are any questions or concerns that arise at home. 09/02 15:36 Order name: Urine Microscopic Only; Complete Time: 16:44 cp 09/02 16:45 Interpretation: Reviewed. cp 09/02 15:48 Order name: Urine Dipstick-Ancillary; Complete Time: 16:44 EDMS 09/02 15:35 Order name: XRAY Pelvis; Complete Time: 16:44 cp 09/02 16:44 Interpretation: Report reviewed. cp 09/02 15:35 Order name: XRAY Hip LEFT 2 view; Complete Time: 16:44 cp 09/02 16:44 Interpretation: Report reviewed. cp 09/02 15:36 Order name: Urine Dipstick-Ancillary (obtain specimen); Complete Time: 15:53 cp Administered Medications: No medications were administered Disposition: 20:30 Co-signature as Attending Physician, Connor KYLE was present in the Emergency ms3 Department for consultation.. Disposition Summary: 09/02/21 16:54 Discharge Ordered Location: Home cp Problem: new cp Symptoms: have improved cp Condition: Stable cp Diagnosis - Pain in left hip cp Followup: cp - With: Saw Regalado MD - When: 1 week - Reason: Recheck today's complaints Discharge Instructions: - Discharge Summary Sheet cp - Hip Pain cp Forms: - Medication Reconciliation Form cp - Thank You Letter cp - Antibiotic Education cp - Prescription Opioid Use cp Prescriptions: - Diclofenac Sodium 75 mg Oral tablet,delayed release (DR/EC) - take 1 tablet by ORAL route 2 times per day; 20 tablet; Refills: 0, Product cp Selection Permitted Signatures: Dispatcher [employer] EDDE Dickson Jade PA PA cp Sims, Marcus, DO DO ms3 Libra Guevara RN RN ld1
--- NOTE | 2021-09-02 16:54 | ER ---
Nurse's Notes [facility] Name: Henry Rodriguez Age: 76 yrs Sex: Male : 1945 Arrival Date: 09/02/2021 Time: 14:50 Bed 11 Private MD: Diagnosis: Pain in left hip Presentation: 09/02 14:58 Chief complaint: Patient states: Left groin pain radiates down left leg when walking X ld1 6 days. Past two days pain has increased. Coronavirus screen: At this time, the client does not indicate any symptoms associated with coronavirus-19. Ebola Screen: No symptoms or risks identified at this time. Initial Sepsis Screen: Does the patient meet any 2 criteria? No. Patient's initial sepsis screen is negative. Does the patient have a suspected source of infection? No. Patient's initial sepsis screen is negative. Risk Assessment: Do you want to hurt yourself or someone else? Patient reports no desire to harm self or others. Onset of symptoms was September 02, 2021. 14:58 Method Of Arrival: Ambulatory ld1 14:58 Acuity: ESPERANZA 4 ld1 Triage Assessment: 14:58 General: Appears in no apparent distress. comfortable, Behavior is calm, cooperative, ld1 appropriate for age. Pain: Complains of pain in left femoral area Pain radiates to left quadriceps Pain currently is 2 out of 10 on a pain scale. at worst was 8 out of 10 on a pain scale. Quality of pain is described as throbbing, Deep electric shock. Neuro: Level of Consciousness is awake, alert, obeys commands, Oriented to person, place, time, situation, Appropriate for age. Respiratory: Airway is patent Respiratory effort is even, unlabored, Respiratory pattern is regular, symmetrical. Musculoskeletal: Reports pain in pelvis and left leg. 14:58 Cardiovascular: Capillary refill < 3 seconds Patient's skin is warm and dry. ld1 Historical: - Allergies: 14:58 No Known Allergies; ld1 - Home Meds: 14:58 aspirin 81 mg Oral TbEC 1 tab once daily [Active]; pravastatin 20 mg oral tab [Active]; ld1 - PMHx: 14:58 High Cholesterol; ld1 - PSHx: 14:58 Appendectomy; ld1 - Immunization history:: Adult Immunizations up to date, Client reports receiving the 2nd dose of the Covid vaccine. - Social history:: Smoking status: Patient denies any tobacco usage or history of. Patient/guardian denies using alcohol. Screenin:23 Abuse screen: Denies threats or abuse. Nutritional screening: No deficits noted. ss7 Tuberculosis screening: No symptoms or risk factors identified. Fall Risk None identified. Assessment: 15:21 General: Appears in no apparent distress. Behavior is calm, cooperative, appropriate ss7 for age. Pain: Complains of pain in left leg and left quadriceps Pain radiates to left leg. Neuro: No deficits noted. Level of Consciousness is awake, alert, obeys commands, Oriented to person, place, time, situation. Cardiovascular: Heart tones S1 S2. Respiratory: Breath sounds are clear bilaterally. GI: No deficits noted. : No deficits noted. EENT: No deficits noted. Derm: No deficits noted. Musculoskeletal: Reports pain in left leg. 15:55 Reassessment: radiology at bedside. ss7 Vital Signs: 14:58 BP 139 / 87; Pulse 88; Resp 18; Temp 98.7(TE); Pulse Ox 96% on R/A; Weight 122.47 kg; ld1 Height 6 ft. 7 in. (200.66 cm); Pain 2/10; 17:00 BP 144 / 75; Pulse 76; Resp 18; Pulse Ox 96% on R/A; ss7 14:58 Body Mass Index 30.42 (122.47 kg, 200.66 cm) ld1 ED Course: 14:50 Patient arrived in ED. kz 14:58 Arm band placed on right wrist. ld1 14:59 Triage completed. ld1 15:04 Sherrill Barone, SHAKIRA is Primary Nurse. ss7 15:05 Dickson Jade PA is PHCP. cp 15:05 Connor Morton DO is Attending Physician. cp 15:23 Patient has correct armband on for positive identification. Call light in reach. ss7 15:23 No provider procedures requiring assistance completed. ss7 15:53 Urine Microscopic Only Sent. ss7 16:20 XRAY Pelvis In Process Unspecified. EDMS 16:20 XRAY Hip LEFT 2 view In Process Unspecified. EDMS 16:54 Saw Regalado MD is Referral Physician. cp 17:01 Patient did not have IV access during this emergency room visit. ss7 Administered Medications: No medications were administered Outcome: 16:54 Discharge ordered by . [place] 17:01 Discharged to home ambulatory. ss7 17:01 Condition: good 17:01 Discharge instructions given to patient, Instructed on discharge instructions, follow up and referral plans. Demonstrated understanding of instructions, follow-up care, medications, Prescriptions given X 1. 17:01 Patient left the ED. ss7 Signatures: Dispatcher [employer] EDMS Dickson Jade PA PA cp Dibbern, Lauren, RN RN ld1 Sherrill Barone RN RN ss7 Saira Johnston
[2021-09-02 18:22] VITALS: TEMP 98.7; O2SAT 96
[2021-09-02 18:24] VITALS: BP 144/75
== END 2021-09-02 17:01 | disposition home or self-care (01) ==
LOC: ER 14:46
DX: M25.552 Pain in left hip (principal); E78.00 Pure hypercholesterolemia, unspecified; Z79.82 Long term (current) use of aspirin
CPT/HCPCS: 72170; 81003; 81015; 99283

== ENCOUNTER 2023-04-17 11:03 | Emergency (ER) | payer OTHER ==
[2023-04-17 11:54] LABS: Absolute Lymphocytes (CBC) 0.9 K/uL (0.7-4.9); Hematocrit 45.7 % (39.6-49.0); Lymphocytes % 8.9 % (15.3-44.8); MCV 95.9 fL (80-100); MPV 9.5 fL (7.6-11.3); Platelets 140 thou/uL (152-406); RBC Red Blood Cell Count 4.76 M/uL (4.33-5.43)
[2023-04-17 12:14] LABS: Albumin 3.3 g/dL (3.4-5.0); Bilirubin Total 0.7 mg/dL (0.2-1.0); Potassium 4.6 mEq/L (3.5-5.1); Protein, Total 7.8 g/dL (6.4-8.2)
[2023-04-17 12:23] LABS: Specific Gravity 1.023 (1.005-1.030); Urine Bacteria None Seen /HPF (<20); Urine Bilirubin NEGATIVE (Negative); Urine Blood Negative (Negative); Urine Clarity Clear (Clear); Urine Color Yellow (Yellow); Urine Glucose NEGATIVE (Negative); Urine Mucus Slight /HPF (None Seen); Urine Protein TRACE (Negative); Urine RBC <5 /HPF (None Seen); Urine Urobilinogen Normal (Normal); Urine pH 5.5 (5.0-7.0)
[2023-04-17] MEDS ORDERED: ONDANSETRON 4 MG/2 ML VIAL ONE (12:32)
[2023-04-17] MEDS ORDERED: NA CHLORIDE 0.9% 1,000 ML ONE (12:32)
[2023-04-17] MEDS ORDERED: MORPHINE 4 MG/ML SYR ONE (12:32)
--- NOTE | 2023-04-17 12:54 | RAD REPORT ---
EXAM DESCRIPTION: CT - Abdomen Pelvis W Contrast - 04/17/2023 12:31 pm CLINICAL HISTORY: Abdominal pain COMPARISON: none. TECHNIQUE: Computed axial tomography of the abdomen pelvis was obtained. 100 cc Isovue-300 was admin istered intravenously. Oral contrast was not requested which limits evaluation of bowel and appendix All CT scans are performed using dose optimization technique as appropriate and may include automated exposure control or mA/KV adjustment according to patient size. FINDINGS: The liver, spleen, pancreas, adrenal and kidneys appear unremarkable. Diverticula stem from colon. Mild to moderate stranding adjacent to sigmoid colon. No free air. No ab scess Moderate bilateral hernias contain fat Small umbilical hernia IMPRESSION: Mild to moderate sigmoid diverticulitis
--- NOTE | 2023-04-17 13:07 | ER ---
Nurse's Notes [facility] Name: Henry Rodriguez Age: 77 yrs Sex: Male : 1945 Arrival Date: 04/17/2023 Time: 11:03 Bed 14 Private MD: Diagnosis: Sigmoid diverticulitis Presentation: 04/17 11:38 Chief complaint: Patient states: abd pain since Monday night , no vomiting or diarrhea, iw had some constipation on Monday. Coronavirus screen: At this time, the client does not indicate any symptoms associated with coronavirus-19. Ebola Screen: Patient negative for fever greater than or equal to 101.5 degrees Fahrenheit, and additional compatible Ebola Virus Disease symptoms Patient denies travel to an Ebola-affected area in the 21 days before illness onset. No symptoms or risks identified at this time. Initial Sepsis Screen: Does the patient meet any 2 criteria? No. Patient's initial sepsis screen is negative. Does the patient have a suspected source of infection? No. Patient's initial sepsis screen is negative. Risk Assessment: Do you want to hurt yourself or someone else? Patient reports no desire to harm self or others. Onset of symptoms was April 15, 2023. 11:38 Method Of Arrival: Ambulatory iw 11:38 Acuity: ESPERANZA 3 iw Historical: - Allergies: 11:39 No Known Allergies; iw - PMHx: 11:39 High Cholesterol; iw - PSHx: 11:39 Appendectomy; iw - Immunization history:: Adult Immunizations. - Social history:: Smoking status: Patient denies any tobacco usage or history of. Screenin:40 [facility] ED Fall Risk Assessment (Adult) History of falling in the last 3 months, mb9 including since admission No falls in past 3 months (0 pts) Confusion or Disorientation No (0 pts) Intoxicated or Sedated No (0 pts) Impaired Gait No (0 pts) Mobility Assist Device Used No (0 pt) Altered Elimination No (0 pt) Score/Fall Risk Level 0 - 2 = Low Risk Oriented to surroundings, Maintained a safe environment, Educated pt \T\ family on fall prevention, incl call for assistance when getting out of bed. Abuse screen: Denies threats or abuse. Nutritional screening: No deficits noted. Tuberculosis screening: No symptoms or risk factors identified. Assessment: 12:41 General: Appears in no apparent distress. Behavior is calm, cooperative. Pain: mb9 Complains of pain in abdomen Pain does not radiate. Pain currently is 2 out of 10 on a pain scale. Quality of pain is described as crampy, dull, Pain began gradually, Is intermittent. Neuro: [place] Agitation-Sedation Scale (RASS): 0 - Alert and Calm Level of Consciousness is awake, alert, obeys commands, Oriented to person, place, time, situation, Appropriate for age. Cardiovascular: Patient's skin is warm and dry. Respiratory: Airway is patent Respiratory effort is even, unlabored, Respiratory pattern is regular, symmetrical, Breath sounds are clear bilaterally. GI: Abdomen is round non-distended, Bowel sounds present X 4 quads. Abd is soft Abdomen is tender to palpation in suprapubic area. : No signs and/or symptoms were reported regarding the genitourinary system. EENT: No signs and/or symptoms were reported regarding the EENT system. Derm: Skin is pink, warm \T\ dry. Musculoskeletal: Range of motion: intact in all extremities. 13:16 Reassessment: Patient and/or family updated on plan of care and expected duration. Pain mb9 level reassessed. Patient is alert, oriented x 3, equal unlabored respirations, skin warm/dry/pink. Patient states feeling better. Patient states symptoms have improved. Vital Signs: 11:38 BP 111 / 73; Pulse 77; Resp 16; Temp 98.9; Pulse Ox 97% on R/A; Weight 117.03 kg; iw Height 6 ft. 7 in. ; Pain 8/10; 12:40 BP 126 / 69; Pulse 61; Resp 16; Pulse Ox 99% on R/A; mb9 13:23 BP 112 / 84; Pulse 74; Resp 16; Pulse Ox 99% on R/A; mb9 11:38 Body Mass Index 29.06 (117.03 kg, 200.66 cm) iw 11:38 Pain Scale: Adult iw ED Course: 11:07 Patient arrived in ED. mg5 11:08 [facility] jh7 11:08 Tae Campbell MD is Attending Physician. jh7 11:39 Triage completed. iw 11:39 Arm band placed on. iw 12:00 No provider procedures requiring assistance completed. Inserted saline lock: 22 gauge mb9 in right antecubital area, using aseptic technique. 12:15 Zoraida Dwyer, RN is Primary Nurse. mb9 12:32 CT Abd/Pelvis - IV Contrast Only In Process Unspecified. EDMS 12:40 Placed in gown. Bed in low position. Call light in reach. Side rails up X 1. Client mb9 placed on continuous cardiac and pulse oximetry monitoring. NIBP monitoring applied. 13:16 IV discontinued, intact, bleeding controlled, No redness/swelling at site. Pressure mb9 dressing applied. Administered Medications: 12:39 Drug: NS 0.9% IV 1000 ml IV at 1 bolus Per protocol; 1000 mL bolus Route: IV; Rate: 1 mb9 bolus; Site: right antecubital; 13:24 Follow up: Response: No adverse reaction; IV Status: Completed infusion mb9 12:39 Not Given (Patient Refused): ondansetron 4 mg IVP once; over 2 minutes mb9 12:39 Not Given (Patient Refused): morphineor iv 4 mg IVP once over 4 mins mb9 Medication: 12:40 VIS not applicable for this client. mb9 Outcome: 13:07 Discharge ordered by . jose 13:23 Discharged to home ambulatory, mb9 13:23 Condition: stable 13:23 Discharge instructions given to patient, Instructed on discharge instructions, follow up and referral plans. Demonstrated understanding of instructions, follow-up care, medications, Prescriptions given X 3, 13:24 Patient left the ED. mb9 Signatures: Dispatcher [employer] Sejal Aguayo RN RN iw Hadash, Jennifer, PLATE SENSITIZER PLATE SENSITIZER Zoraida Moore, SHAKIRA RN Lin Joe mg5
--- NOTE | 2023-04-17 13:07 | EDPHYS ---
Physician Documentation [facility] Name: Henry Rodriguez Age: 77 yrs Sex: Male : 1945 Arrival Date: 04/17/2023 Time: 11:03 Bed 14 Private MD: ED Physician Tae Campbell HPI: 04/17 11:30 This 77 yrs old Male presents to ER via Ambulatory with complaints of Abdominal Pain. jh7 11:30 The patient presents with abdominal pain in the periumbilical area. in the left lower jh7 quadrant. Onset: The symptoms/episode began/occurred 3 day(s) ago. The symptoms do not radiate. Associated signs and symptoms: Pertinent negatives: nausea, vomiting, and diarrhea, dysuria, fever, shortness of breath. The symptoms are described as sharp. Severity of pain: in the emergency department the pain is a 6 / 10. Historical: - Allergies: 11:39 No Known Allergies; iw - PMHx: 11:39 High Cholesterol; iw - PSHx: 11:39 Appendectomy; iw - Immunization history:: Adult Immunizations. - Social history:: Smoking status: Patient denies any tobacco usage or history of. ROS: 11:30 Constitutional: Negative for fever, chills, and weight loss, Eyes: Negative for injury, jh7 pain, redness, and discharge, Neck: Negative for injury, pain, and swelling, Cardiovascular: Negative for chest pain, palpitations, and edema, Respiratory: Negative for shortness of breath, cough, wheezing, and pleuritic chest pain, Back: Negative for injury and pain, MS/Extremity: Negative for injury and deformity, Skin: Negative for injury, rash, and discoloration, Neuro: Negative for headache, weakness, numbness, tingling, and seizure, 11:30 Abdomen/GI: Positive for abdominal pain, Negative for nausea, vomiting, and diarrhea, rectal pain, rectal bleeding, 11:30 All other systems are negative, Exam: 11:30 Constitutional: This is a well developed, well nourished patient who is awake, alert, jh7 and in no acute distress. Head/Face: Normocephalic, atraumatic. Cardiovascular: Regular rate and rhythm with a normal S1 and S2. No gallops, murmurs, or rubs. Normal PMI, no JVD. No pulse deficits. Respiratory: Lungs have equal breath sounds bilaterally, clear to auscultation and percussion. No rales, rhonchi or wheezes noted. No increased work of breathing, no retractions or nasal flaring. Back: No spinal tenderness. No costovertebral tenderness. Full range of motion. Skin: Warm, dry with normal turgor. Normal color with no rashes, no lesions, and no evidence of cellulitis. MS/ Extremity: Pulses equal, no cyanosis. Neurovascular intact. Full, normal range of motion. Neuro: Awake and alert, GCS 15, oriented to person, place, time, and situation. Motor strength 5/5 in all extremities. Sensory grossly intact. Normal gait. 11:30 Abdomen/GI: Inspection: abdomen appears normal, Bowel sounds: normal, Palpation: soft, moderate abdominal tenderness, in the suprapubic area and left lower quadrant, Vital Signs: 11:38 BP 111 / 73; Pulse 77; Resp 16; Temp 98.9; Pulse Ox 97% on R/A; Weight 117.03 kg; iw Height 6 ft. 7 in. ; Pain 8/10; 12:40 BP 126 / 69; Pulse 61; Resp 16; Pulse Ox 99% on R/A; mb9 13:23 BP 112 / 84; Pulse 74; Resp 16; Pulse Ox 99% on R/A; mb9 11:38 Body Mass Index 29.06 (117.03 kg, 200.66 cm) iw 11:38 Pain Scale: Adult iw MDM: 11:08 Patient medically screened. [facility] 13:01 Differential diagnosis: diverticulitis, Perf. Duodenal Ulcer, Ureterolithiasis. Data [facility] reviewed: vital signs, nurses notes, lab test result(s), radiologic studies, CT scan. Consideration of Admission/Observation Escalation of care including admission/observation considered. I considered the following discharge prescriptions or medication management in the emergency department Medications were administered in the Emergency Department. See MAR. Counseling: I had a detailed discussion with the patient and/or guardian regarding the historical points, exam findings, and any diagnostic results supporting the discharge/admit diagnosis, to return to the emergency department if symptoms worsen or persist or if there are any questions or concerns that arise at home. Response to treatment: the patient's symptoms have mildly improved after treatment. Special discussion: Discussed potential for admission, but informed the patient's that his labs, vital signs, and past medical history were unremarkable. The patient stated that he did not want to be admitted anyway because his has Alzheimer's at home and that he needed to be with her. Agreed to prescribe antibiotics and medication to help with the abdominal cramping, but gave patient strict return precautions if symptoms worsened. The patient understood the plan of care.. 04/17 11:27 Order name: CBC with Diff; Complete Time: 12:[address] [facility] 04/17 11:27 Order name: CMP; Complete Time: 12:[address] [facility] 04/17 11:27 Order name: Lipase; Complete Time: 12:[address] [facility] 04/17 11:27 Order name: Urinalysis w/ reflexes; Complete Time: 12:[address] [facility] 04/17 11:27 Order name: CT Abd/Pelvis - IV Contrast Only; Complete Time: 12:[address] [facility] 04/17 11:27 Order name: IV Saline Lock; Complete Time: 11:[address] [facility] 04/17 11:27 Order name: Labs collected and sent; Complete Time: 11:[address] [facility] Administered Medications: 12:39 Drug: NS 0.9% IV 1000 ml IV at 1 bolus Per protocol; 1000 mL bolus Route: IV; Rate: 1 mb9 bolus; Site: right antecubital; 13:24 Follow up: Response: No adverse reaction; IV Status: Completed infusion mb9 12:39 Not Given (Patient Refused): ondansetron 4 mg IVP once; over 2 minutes mb9 12:39 Not Given (Patient Refused): morphineor iv 4 mg IVP once over 4 mins mb9 Disposition: 18:57 Co-signature as Attending Physician, Tae Campbell MD I reviewed the patient's care rn provided by the Advanced Practice Provider and agree with the diagnosis and treatment plan. Disposition Summary: 04/17/23 13:07 Discharge Ordered Notes: Location: Home [facility] Problem: new [facility] Symptoms: have improved [facility] Condition: Stable [facility] Diagnosis - Sigmoid diverticulitis [facility] Followup: [facility] - With: Private Physician - When: 2 - 3 days - Reason: Recheck today's complaints Discharge Instructions: - Discharge Summary Sheet [facility] - Diverticulitis [facility] Forms: - Medication Reconciliation Form [facility] - Thank You Letter [facility] - Antibiotic Education [facility] - Patient Portal Instructions [facility] - Leadership Thank You Letter jh7 Prescriptions: - Cipro 500 mg Oral Tablet - take 1 tablet ORAL route every 12 hours for 10 days; 20 tablet; Refills: 0, [facility] Product Selection Permitted - Flagyl 500 mg Oral Tablet - take 1 tablet ORAL route every 12 hours for 7 days; 14 tablet; Refills: 0, [facility] Product Selection Permitted - Levsin 0.125 mg Oral Tablet - take 1 tablet ORAL route every 8 hours; 30 tablet; Refills: 0, Product [facility] Selection Permitted Signatures: Dispatcher [employer] Sejal Aguayo, RN RN Tae Campbell MD MD rn Hadash, Jennifer, FREIGHT ENGINEER FREIGHT ENGINEER 7 Zoraida Dwyer RN RN mb9
== END 2023-04-17 13:24 | disposition home or self-care (01) ==
LOC: ER 11:03
DX: K57.32 Diverticulitis of large intestine without perforation or abscess without bleeding (principal)
CPT/HCPCS: 85025; 81001; 36415; 83690; 80053; 74177; 96360; 99284; Q9967; J7030; J2405

== ENCOUNTER 2024-04-15 15:17 | Emergency (ER) | payer OTHER ==
[2024-04-15] MEDS ORDERED: METHYLPREDNISOLONE 125 MG INJ ONE (16:04)
[2024-04-15] MEDS ORDERED: DIPHENHYDRAMINE 50 MG/ML VIAL ONE (16:05)
[2024-04-15] MEDS ORDERED: FAMOTIDINE 20 MG/2 ML VIAL IV ONE (16:05)
[2024-04-15 16:25] LABS: Absolute Eosinophils 0.2 K/uL (0-0.5); Absolute Lymphocytes (CBC) 1.3 K/uL (0.7-4.9); Absolute Monocytes 0.5 K/uL (0.1-1.3); Absolute Neutrophil 4.6 K/uL (1.8-8.0); Basophils % 0.7 % (0-1.3); Eosinophils % 3.5 % (0-4.4); Hemoglobin 14.6 g/dL (13.6-17.9); Lymphocytes % 19.3 % (15.3-44.8); MCH 33.1 pg (27.0-35.0); MCHC 34.1 g/dL (32.0-36.0); MCV 97.3 fL (80-100); Monocytes % 8.1 % (3.3-12.3); Neutrophils % 68.4 % (41.7-73.7); Nucleated Red Blood Cells % 0.2 % (0-0); Platelets 146 thou/uL (152-406); RBC Red Blood Cell Count 4.42 M/uL (4.33-5.43); Red Cell Distribution Width 13.7 % (12.1-15.2)
[2024-04-15 17:16] LABS: Differential Total Cells Count 100; Eosinophils 3 % (0-3); Lymphocytes 21 % (15-42); Monocytes 5 % (0-10); Platelet Estimate ADEQ; Segmented Neutrophils 70 % (40-80)
[2024-04-15 17:17] LABS: Blood Morphology Comment NOT SEEN (NOT SEEN)
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
--- NOTE | 2024-04-15 17:57 | ER ---
Nurse's Notes [facility] Name: Henry Rodriguez Age: 78 yrs Sex: Male : 1945 Arrival Date: 04/15/2024 Time: 15:17 Bed 11 Private MD: Diagnosis: Allergy, unspecified;Allergic contact dermatitis, unspecified cause Presentation: 04/15 15:41 Chief complaint: Patient states: Rash started to upper abdomen for 72 hours. Spread to ll1 chest, very itchy. No fever. Coronavirus screen: Client denies travel out of the [place] in the last 14 days. At this time, the client does not indicate any symptoms associated with coronavirus-19. Ebola Screen: Patient denies travel to an Ebola-affected area in the 21 days before illness onset. Initial Sepsis Screen: Does the patient meet any 2 criteria? No. Patient's initial sepsis screen is negative. Does the patient have a suspected source of infection? No. Patient's initial sepsis screen is negative. Risk Assessment: Do you want to hurt yourself or someone else? Patient reports no desire to harm self or others. Onset of symptoms was April 13, 2024. 15:41 Method Of Arrival: Ambulatory ll1 15:41 Acuity: ESPERANZA 3 ll1 Triage Assessment: 15:41 General: Appears in no apparent distress. Behavior is calm, cooperative, appropriate ll1 for age. Pain: Complains of pain in chest Quality of pain is described as burning, aching. Derm: Reports rash to abdomen and chest. Historical: - Allergies: 15:41 No Known Allergies; ll1 - PMHx: 15:41 High Cholesterol; ll1 - PSHx: 15:41 Appendectomy; ll1 - Immunization history:: Adult Immunizations up to date. - Infectious Disease History:: Denies. - Social history:: Smoking status: Patient denies any tobacco usage or history of. Screenin:45 [facility] ED Fall Risk Assessment (Adult) History of falling in the last 3 months, ar6 including since admission No falls in past 3 months (0 pts) Confusion or Disorientation No (0 pts) Intoxicated or Sedated No (0 pts) Impaired Gait No (0 pts) Mobility Assist Device Used No (0 pt) Altered Elimination No (0 pt) Score/Fall Risk Level 0 - 2 = Low Risk Oriented to surroundings, Maintained a safe environment, Hourly rounding (assess needs \T\ fall precautionary measures) done. Abuse screen: Denies threats or abuse. Denies injuries from another. Nutritional screening: No deficits noted. Tuberculosis screening: No symptoms or risk factors identified. Assessment: 16:30 General: Appears in no apparent distress. comfortable, Behavior is calm, cooperative, ar6 appropriate for age. Pain: Denies pain. Neuro: Level of Consciousness is awake, alert, obeys commands, Oriented to person, place, time, situation. Cardiovascular: Capillary refill < 3 seconds. Respiratory: Airway is patent. GI: Abdomen is round non-distended. : No signs and/or symptoms were reported regarding the genitourinary system. EENT: Oral mucosa is moist. Derm: Skin is intact, rash to chest and abdomen Skin is dry, Skin is pink, warm, \T\ dry to body; chest \T\ abdomen reddened with rash. Musculoskeletal: No signs and/or symptoms reported regarding the musculoskeletal system. Vital Signs: 15:41 BP 135 / 86; Pulse 61; Resp 17; Temp 97; Pulse Ox 100% ; Weight 114.76 kg; Height 6 ft. ll1 7 in. ; Pain 8/10; 16:45 BP 118 / 78; Pulse 60; Resp 18; Temp 98.6; Pulse Ox 100% on R/A; Weight 114.76 kg; ar6 Height 6 ft. 7 in. ; Pain 0/10; 17:38 BP 116 / 67; Pulse 58; Resp 16; Pulse Ox 99% on R/A; ar6 16:45 Body Mass Index 28.50 (114.76 kg, 200.66 cm) ar6 15:41 Pain Scale: Adult ll1 16:45 Pain Scale: Adult ar6 ED Course: 15:22 Patient arrived in ED. ra3 15:42 Kurt Akhtar MD is Attending Physician. bo1 15:42 Triage completed. ll1 15:42 Arm band placed on. ll1 15:56 Shawnee Alvarez, RN is Primary Nurse. ar6 16:45 No apparent distress. Awaiting disposition. ar6 16:45 Patient has correct armband on for positive identification. Bed in low position. Call ar6 light in reach. Side rails up X 1. Provided Education on: plan of care. Pulse ox on. NIBP on. Door closed. Lights dimmed. Moved to private room. 16:45 No provider procedures requiring assistance completed. Inserted saline lock: 22 gauge ar6 in left hand, using aseptic technique. Blood collected. Flushed with 10 mL NS. 18:14 IV discontinued, intact, bleeding controlled, No redness/swelling at site. Pressure ar6 dressing applied. Administered Medications: 16:44 Drug: diphenhydrAMINE IVP 50 mg IVP once Route: IVP; Site: left hand; ar6 18:14 Follow up: Response: No adverse reaction ar6 16:44 Drug: Famotidine IVP 20 mg IVP once; dilute with 10 mL 0.9% NaCl; give over 2 minutes ar6 Route: IVP; Site: left hand; 18:14 Follow up: Response: No adverse reaction ar6 16:44 Drug: MethylPrednisoLONE IVP 125 mg IVP once Route: IVP; Site: left hand; ar6 18:13 Follow up: Response: No adverse reaction ar6 Medication: 16:45 VIS not applicable for this client. ar6 Outcome: 17:57 Discharge ordered by MD. evans 18:14 Discharged to home ambulatory, with family, ar6 18:14 Condition: good 18:14 Discharge instructions given to patient, family, Instructed on discharge instructions, follow up and referral plans. medication usage, Demonstrated understanding of instructions, follow-up care, medications, Prescriptions given X 4, 18:14 Patient left the ED. ar6 Signatures: Sarah Beth Rowe RN RN ll1 Naida Bates ra3 Kurt Akhtar MD MD bo1 Shawnee Alvarez RN RN ar6
[2024-04-15 23:07] VITALS: TEMP 98.6
[2024-04-15 23:09] VITALS: BP 116/67; O2SAT 99
== END 2024-04-15 18:14 | disposition home or self-care (01) ==
LOC: ER 15:17
DX: L23.9 Allergic contact dermatitis, unspecified cause (principal)
CPT/HCPCS: 85025; 36415; 96375; 96374; 99284; J1200; J2919